=== PATIENT | female | born 1990 | race Two or more races ===

== ENCOUNTER 2020-01-27 23:27 | Emergency (ER) | payer SELFPAY ==
--- NOTE | 2020-01-27 23:54 | EDM.PDOC ---
ED HPI GENERAL MEDICAL PROBLEM - General Chief Complaint: Genitourinary Problem Stated Complaint: POSS UTI Time Seen by Provider: 01/27/20 23:38 Source of Information: Reports: Patient History Limitations: Reports: No Limitations - History of Present Illness INITIAL COMMENTS - FREE TEXT/NARRATIVE: Mrs. Chaudhry is a pleasant 29-year-old woman with a past medical history significant for polycystic ovarian syndrome, untreated for the past month, who now presents the ED stating that she has had 3 days of feeling like she is leaking urine throughout the day. She took [id number] Azo, and subsequently developed dysuria, urinary frequency, bladder pressure, and the sensation that she cannot adequately empty her bladder. She states that her symptoms are not present all the time, and that they resolve if she goes running or exercises. No associated fever, chills, lower back pain, nausea, vomiting, or watery diarrhea. No associated vaginal bleeding. No similar symptoms prior to 3 days ago. The patient states that she was seen at the walk-in clinic yesterday, where a urinalysis was unremarkable. She states that no other tests were done. She states that she was not given a diagnosis, and no treatment was recommended. Here in the ED, the patient is found to be hemodynamically stable, afebrile, saturating 99% on room air. Other than the above symptoms, the patient denies having a recent fever, chills, sore throat, ear pain, nasal or sinus congestion, cough, dyspnea, chest pain, palpitations, nausea, vomiting, constipation, diarrhea, abdominal pain, recent weight gain or weight loss, recent bloody bowel movements or black bowel movements, recent joint aches, headaches, or rashes. The patient does not recall the name of her PCP in the [facility] clinic. She states that she has an appointment in 3 weeks. - Related Data Allergies Allergy/AdvReac Type Severity Reaction Status Date / Time Penicillins Allergy Severe Difficulty Verified 01/28/20 00:10 Breathing Past Medical History REGISTERED DENTAL HYGIENIST History: Reports: Polycystic Ovaries (untreated) Endocrine/Metabolic History: Reports: Obesity/BMI 30+ Social & Family History - Tobacco Use Smoking Status *Q: Never Smoker - Alcohol Use Alcohol Use History: Yes Alcohol Use Frequency: Socially - Recreational Drug Use Recreational Drug Use: No - Living Situation & Occupation Living situation: Reports: , with Spouse Occupation: Unemployed ED ROS GENERAL - Review of Systems Review Of Systems: Comprehensive ROS is negative, except as noted in HPI. ED EXAM, RENAL/ - Physical Exam Exam: See Below Exam Limited By: No Limitations General Appearance: Alert, WD/WN, No Apparent Distress Eye Exam: Bilateral Eye: EOMI, Normal Inspection Ears: Normal External Exam, Hearing Grossly Normal Nose: Normal Inspection Throat/Mouth: Normal Inspection, Normal Lips, Normal Voice, No Airway Compromise Head: Atraumatic, Normocephalic Neck: Normal Inspection, Full Range of Motion Respiratory/Chest: No Respiratory Distress, Lungs Clear, Normal Breath Sounds, No Accessory Muscle Use Cardiovascular: Normal Peripheral Pulses, Regular Rate, Rhythm, No Edema, No Gallop, No JVD, No Murmur, No Rub GI/Abdominal: Normal Bowel Sounds, Soft, No Organomegaly, No Distention, No Abnormal Bruit, No Mass, Tender (mild, suprapubic only, with no tenderness elsewhere) (Female) Exam: Deferred Rectal (Female) Exam: Deferred Back Exam: Normal Inspection, Full Range of Motion. No: CVA Tenderness (L), CVA Tenderness (R) Extremities: Normal Inspection, Normal Range of Motion, No Pedal Edema, Normal Capillary Refill Neurological: Alert, Oriented, Normal Cognition, No Motor/Sensory Deficits Psychiatric: Normal Affect Skin Exam: Warm, Dry, Intact, Normal Color, No Rash Course - Vital Signs Last Recorded V/S: Last Vital Signs Temp 36.8 C 01/27/20 23:36 Pulse 88 01/27/20 23:36 Resp 16 01/27/20 23:36 BP 128/85 01/27/20 23:36 Pulse Ox 99 01/27/20 23:36 - Orders/Labs/Meds Orders: Active Orders 24 hr Category Date Time Status Bladder Scan [RC] ASDIRECTED Care 01/27/20 23:50 Active Labs: Laboratory Tests 01/27/20 01/27/20 Range/Units 23:40 23:40 Urine Color Yellow (Yellow) Urine Appearance Clear (Clear) Urine pH 7.0 (5.0-8.0) Ur Specific Ingram 1.015 (1.005-1.030) Urine Protein Negative (Negative) Urine Glucose (UA) Negative (Negative) Urine Ketones Negative (Negative) Urine Occult Blood Negative (Negative) Urine Nitrite Negative (Negative) Urine Bilirubin Negative (Negative) Urine Urobilinogen 0.2 (0.2-1.0) Ur Leukocyte Esterase Negative (Negative) Urine RBC 0-5 (0-5) /hpf Urine WBC 0-5 (0-5) /hpf Ur Squamous Epith Cells 0-5 (0-5) /hpf Urine Bacteria Few (FEW) /hpf Urine Mucus Not seen (FEW) /hpf Urine HCG, Qual Negative (NEGATIVE) - Re-Assessments/Exams Free Text/Narrative Re-Assessment/Exam: 01/27/20 23:51 As above, the patient has had 3 days of feeling like she is leaking urine, followed by bladder pressure, dysuria with urinary frequency, and the sensation of inadequate bladder emptying after she took Azo, but reportedly had a normal urinalysis yesterday at the walk-in clinic. Her physical exam reveals mild sup rapubic tenderness, but is otherwise completely negative. I have ordered a urinalysis, urine test, and post-void bladder scan. 01/28/20 00:52 The patient's urinalysis is completely normal. Her urine test is negative. Post-void bladder scan revealed 54 mL of retained urine. 01/28/20 00:59 Test results discussed with the patient. As above, the patient symptoms are consistent with interstitial cystitis, except that that diagnosis requires 6 weeks of symptoms, and the patient has only had 3 days. Nevertheless, I would like to refer her to Gynecology for further evaluation. In the meantime, I am recommending that she stop taking the [id number] Azo. Departure - Departure Time of Disposition: 01:00 Disposition: Home, Self-Care 01 Condition: Good Clinical Impression: Dysuria, Urinary frequency - Discharge Information *PRESCRIPTION DRUG MONITORING PROGRAM REVIEWED*: Not Applicable *COPY OF PRESCRIPTION DRUG MONITORING REPORT IN PATIENT DANIELLE: Not Applicable Referrals: PCP,None [Primary Care Provider] - Raymundo Souza MD [Physician] - Forms: ED Department Discharge Additional Instructions: You were seen in the emergency room for 3 days of feeling like you are leaking urine, then developing painful urination with the need to urinate often, along with bladder pressure, after taking Azo. Work-up in the ER included a urinalysis, urine test, and a post-void bladder scan. Your urinalysis was completely normal. You do not have a urinary tract infection. You are not . Your post-void bladder scan found only 54 mL of retained urine. The cause of your symptoms is not known. We recommend that you stop taking [id number] Azo. Stay adequately hydrated. We recommend that you follow-up with the welt rougher Dr. Raymundo Souza at the next available appointment. If any other problems, please do not hesitate to return to the ER. Sepsis Event Note (ED) - Evaluation Sepsis Screening Result: No Definite Risk - Focused Exam Vital Signs: Vital Signs Temp Pulse Resp BP Pulse Ox 01/27/20 23:36 36.8 C 88 16 128/85 99 - My Orders Last 24 Hours: My Active Orders 01/27/20 23:50 Bladder Scan [RC] ASDIRECTED - Assessment/Plan Last 24 Hours: My Active Orders 01/27/20 23:50 Bladder Scan [RC] ASDIRECTED
== END 2020-01-28 01:10 | disposition home or self-care (01) ==
LOC: JD.ED 23:27
DX: R30.0 Dysuria (principal); R35.0 Frequency of micturition; E66.9 Obesity, unspecified; Z88.0 Allergy status to penicillin; Z68.35 Body mass index [BMI] 35.0-35.9, adult
CPT/HCPCS: 51798; 81001; 81025; 99282; 99283